=== PATIENT | male | born 1985 | race Caucasian/White ===

== ENCOUNTER 2024-05-26 22:52 | Emergency (ER) | payer OTHER ==
[~2024-05-26] VITALS: Ht 177.8 cm; Wt 102.0 kg
[2024-05-26] MEDS ORDERED: FAMOTIDINE40 MG PO (23:03)
[2024-05-26] MEDS ORDERED: PREGABALIN200 MG PO (23:03)
[2024-05-26] MEDS ORDERED: PANTOPRAZOLE SO40 MG PO (23:03)
[2024-05-26] MEDS ORDERED: DEXTROAMP-AMPHE20 MG PO (23:03)
[2024-05-26] MEDS ORDERED: ZOLPIDEM TARTRA10 MG PO (23:03)
[2024-05-26] MEDS ORDERED: METHADOSE40 MG PO (23:05)
[2024-05-26] MEDS ORDERED: METHADONE HCL10 MG PO (23:05)
[2024-05-26 23:20] LABS: BILIRUBIN, URINE NEGATIVE (negative); BLOOD/HGB, URINE NEGATIVE (Negative); KETONE, URINE NEGATIVE (Negative); LEUK ESTERASE, URINE NEGATIVE (negative); NITRITE, URINE NEGATIVE (negative)
[2024-05-26] MEDS ORDERED: KETOROLAC TROMETHAMINE 30 MG/ML VIAL IV ONE (23:30)
[2024-05-26] MEDS ORDERED: LACTATED RINGER'S 1,000 ML IV ONE (23:30)
[2024-05-26 23:51] LABS: AMPHETAMINES, URINE POSITIVE (NEGATIVE); BARBITURATES, URINE NEGATIVE (NEGATIVE); BENZODIAZEPINE, URINE NEGATIVE (NEGATIVE); BUPRENORPHINE, URINE NEGATIVE (NEGATIVE); CANNABINOID, URINE NEGATIVE (NEGATIVE); COCAINE, URINE NEGATIVE (NEGATIVE); ECSTASY, URINE NEGATIVE (NEGATIVE); FENTANYL, URINE NEGATIVE (NEGATIVE); METHADONE, URINE POSITIVE (NEGATIVE); OPIATES, URINE NEGATIVE (NEGATIVE); OXYCODONE, URINE NEGATIVE (NEGATIVE); PHENCYCLIDINE, URINE NEGATIVE (NEGATIVE)
[2024-05-26 23:52] LABS: BASOPHILS 0.2 % (0-2); EOSINOPHILS 0.2 % (0-6); HEMATOCRIT 42.2 % (35.0-50.0); HEMOGLOBIN 14.6 g/dL (12.0-18.0); LYMPHOCYTES 12.4 % (24-44); MCH 28.3 (27-36); MCHC 34.6 g/dl (30-36); MCV 81.9 fl (81-99); NEUTROPHILS 79.2 % (39-80); PLATELET COUNT 284 K/uL (140-440); RBC 5.15 M/ul (4.3-5.7); RDW 13.9 (10.5-15.0)
[2024-05-27 00:14] LABS: ALBUMIN 3.8 g/dL (3.4-5.0); ALBUMIN/GLOBULIN RATIO 1.12 (1.1-2.4); ANION GAP 12.7 (7-21); BILIRUBIN, TOTAL 1.3 mg/dL (0.2-1.0); BUN/CREATININE RATIO 16.96 (6.0-28.6); CALCIUM 8.8 mg/dL (8.5-10.1); CREATININE, SERUM 1.12 mg/dL (0.70-1.30); POTASSIUM 3.7 mmol/L (3.5-5.1); PROTEIN, TOTAL 7.2 g/dL (6.4-8.2)
[2024-05-27 00:53] LABS: N. GONORRRHOEAE BY PCR NOT DETECTED (NOT DETECT)
[2024-05-27 01:19] LABS: ACETAMINOPHEN 0 ug/mL (10-30)
[2024-05-27 02:01] VITALS: BP 127/80
== END 2024-05-27 02:00 | disposition home or self-care (01) ==
LOC: ED 22:52
PROVIDERS: Internal Medicine
DX: N50.812 Left testicular pain (principal); N50.811 Right testicular pain
CPT/HCPCS: 36415; 76870; 80053; 80307; 81003; 85025; 96374; 99284; G0480; J1885; J7121

== ENCOUNTER 2024-07-03 11:46 | Emergency (ER) | payer OTHER ==
[~2024-07-03] VITALS: Ht 177.8 cm; Wt 102.4 kg
[~2024-07-03 11:46] MED LIST: DEXTROAMP-AMPHE20 MG PO; FAMOTIDINE40 MG PO; METHADONE HCL10 MG PO; METHADOSE40 MG PO; PANTOPRAZOLE SO40 MG PO; PREGABALIN200 MG PO; ZOLPIDEM TARTRA10 MG PO
[2024-07-03] MEDS ORDERED: SODIUM CHLORIDE 0.9% 1,000 ML IV ONE (12:15)
[2024-07-03] MEDS ORDERED: ondansetron HCL 4 MG/2 ML VIAL IV ONE (12:15)
[2024-07-03] MEDS ORDERED: KETOROLAC TROMETHAMINE 30 MG/ML VIAL IV ONE (12:15)
[2024-07-03 12:39] LABS: BILIRUBIN, URINE NEGATIVE (negative); BLOOD/HGB, URINE NEGATIVE (Negative); KETONE, URINE NEGATIVE (Negative); LEUK ESTERASE, URINE NEGATIVE (negative); NITRITE, URINE NEGATIVE (negative); PH, URINE 6.5 (5-7)
[2024-07-03 12:40] LABS: BASOPHILS 0.6 % (0.2-1.2); EOSINOPHILS 2.8 % (0.8-7.0); HEMATOCRIT 41.9 % (40.1-51.0); HEMOGLOBIN 13.6 g/dL (13.7-17.5); LYMPHOCYTES 37.6 % (21.8-53.1); MCH 27.6 PG (25.7-32.2); MCHC 32.5 g/dL (32.3-36.5); MCV 85.2 fL (79.0-92.2); MONOCYTES 6.5 % (5.3-12.2); PLATELET COUNT 269 K/uL (163-337); RBC 4.92 M/uL (4.63-6.08)
[2024-07-03 12:59] LABS: ALBUMIN 3.7 g/dL (3.4-5.0); ALBUMIN/GLOBULIN RATIO 1.19 (1.1-2.4); ANION GAP 12.1 (7-21); BILIRUBIN, TOTAL 0.8 mg/dL (0.2-1.0); BUN/CREATININE RATIO 30.92 (6.0-28.6); CALCIUM 8.6 mg/dL (8.5-10.1); CREATININE, SERUM 0.97 mg/dL (0.70-1.30); POTASSIUM 4.1 mmol/L (3.5-5.1); PROTEIN, TOTAL 6.8 g/dL (6.4-8.2)
[2024-07-03 14:14] VITALS: BP 129/98
== END 2024-07-03 14:14 | disposition home or self-care (01) ==
LOC: ED 11:46
PROVIDERS: Emergency Medicine
DX: K59.03 Drug induced constipation (principal); T40.2X5A Adverse effect of other opioids, initial encounter; R10.31 Right lower quadrant pain; Z79.899 Other long term (current) drug therapy
CPT/HCPCS: 36415; 74177; 80053; 81003; 83690; 85025; 96375; 99284-25; J1885; J2405; J7030; Q9967

== ENCOUNTER 2024-10-12 07:42 | Emergency (ER) | payer OTHER ==
[~2024-10-12] VITALS: Ht 177.8 cm; Wt 102.9 kg
[2024-10-12 08:14] VITALS: BP 143/107
[2024-10-12] MEDS ORDERED: ACETAMINOPHEN 500 MG TAB PO ONE (08:15)
== END 2024-10-12 08:14 | disposition home or self-care (01) ==
LOC: ED 07:42
DX: S01.01XA Laceration without foreign body of scalp, initial encounter (principal); Z79.899 Other long term (current) drug therapy; W26.8XXA Contact with other sharp object(s), not elsewhere classified, initial encounter
CPT/HCPCS: 99282; A9270